=== PATIENT | female | born 1990 | race Caucasian/White ===

== ENCOUNTER 2016-09-04 07:46 | Inpatient (IN) | payer BC ==
[2016-08-30 11:49] LABS: ABSOLUTE EOSINOPHILS # (AUTO) 0.1 10^3/uL (0.0-0.6); ABSOLUTE LYMPHOCYTES (AUTO) 1.7 10^3/uL (0.5-4.7); ABSOLUTE MONOCYTES (AUTO) 0.8 10^3/uL (0.1-1.4); ABSOLUTE NEUT (AUTO) 4.9 10^3/uL (1.7-8.2); BASOPHILS % (AUTO) 0.6 % (0-2); HEMATOCRIT 32.9 % (36.0-47.0); HEMOGLOBIN 10.6 g/dL (12.0-15.5); HGB HCT DIFFERENCE -1.1; LYMPHOCYTES % (AUTO) 22.6 % (13-45); MEAN CORPUSCULAR HEMOGLOBIN 25.5 pg (27.0-33.4); MEAN CORPUSCULAR HGB CONC 32.3 g/dL (32.0-36.0); MEAN CORPUSCULAR VOLUME 79 fl (80-97); MONOCYTES % (AUTO) 10.8 % (3-13); RED BLOOD COUNT 4.16 10^6/uL (3.72-5.28); RED CELL DISTRIBUTION WIDTH 15.6 % (11.5-14.0); WHITE BLOOD COUNT 7.6 10^3/uL (4.0-10.5)
[2016-08-30 11:51] LABS: APPEARANCE,URINE SLIGHTLY-CLOUDY; BILIRUBIN,URINE NEGATIVE (NEGATIVE); GLUCOSE, URINE NEGATIVE (NEGATIVE); KETONES,URINE NEGATIVE (NEGATIVE); LEUKOCYTE ESTERASE,URINE MODERATE (NEGATIVE); NITRITE,URINE NEGATIVE (NEGATIVE); PROTEIN,URINE NEGATIVE (NEGATIVE); URINE SPECIFIC GRAVITY 1.004; UROBILINOGEN,URINE NEGATIVE mg/dL (<2.0)
[2016-08-30 12:04] LABS: URINE BARBITURATES SCREEN NEGATIVE; URINE METHADONE SCREEN NEGATIVE; URINE OPIATES LOW NEGATIVE; URINE PHENCYCLIDINE SCREEN NEGATIVE
[~2016-09-04 07:46] MED LIST: CEFAZOLIN 2 GM/D5W RTU 2 GM/50 ML RTUPB IV PRN; CEFAZOLIN SODIUM 1 GM in DEXTROSE 5%-WATER 50 ML IV PRN; LACTATED RINGERS 1000 ML IV PRN; LIDOCAINE 0.5% INJ-PF (5 MG/ML) 50 ML SDV SUBCUT PRN; RINGERS SOLUTION,LACTATED 1,500 ML IV PRN
[2016-09-04] MEDS ORDERED: OXYTOCIN 10 UNIT/ML VIAL ONE (10:29)
[2016-09-04] MEDS ORDERED: FENTANYL CITRATE INJ/PF 100 MCG/2 ML AMPUL ONE (10:30)
[2016-09-04] MEDS ORDERED: EPHEDRINE SULFATE INJ 50 MG/1 ML AMPULE ONE (10:30)
[2016-09-04] MEDS ORDERED: ACETAMINOPHEN 100 ML IV ONE ×2 (10:30→18:30)
[2016-09-04] MEDS ORDERED: METHYLERGONOVINE MALEATE INJ/PF 0.2 MG/1 ML AMPULE ONE (10:30)
[2016-09-04] MEDS ORDERED: OXYTOCIN/NORMAL SALINE 20 UNIT/1,000 ML RTUINJ ONE (10:30)
[2016-09-04] MEDS ORDERED: MIDAZOLAM 2 MG/2 ML INJ ONE (10:30)
[2016-09-04] MEDS ORDERED: DIPHENHYDRAMINE HCL 50 MG/ML VIAL IV PRN (11:04)
[2016-09-04] MEDS ORDERED: MORPHINE SULFATE 10 MG/ML INJ IV PRN (11:04)
[2016-09-04] MEDS ORDERED: FENTANYL CITRATE INJ/PF 100 MCG/2 ML AMPUL IV PRN ×3 (11:04)
[2016-09-04] MEDS ORDERED: ONDANSETRON HCL INJ/PF 4 MG/2 ML SDV IV PRN (11:04)
[2016-09-04] MEDS ORDERED: MEPERIDINE HCL/PF INJ 25 MG/1 ML DISP.SYRIN IV PRN (11:04)
[2016-09-04] MEDS ORDERED: PROMETHAZINE HCL INJ 25 MG/1 ML VIAL IV PRN ×2 (11:04)
[2016-09-04] MEDS ORDERED: OXYCODONE-ACETAMINOPHEN 5-325 MG TABLET PO PRN ×3 (11:04→14:55)
--- NOTE | 2016-09-04 11:48 | OPERATIVE REPORT E ---
Operative Report NAME: NICKY RANGEL : 1990 AGE: 26Y DATE OF SURGERY: 09/04/2016 ROOM: 225 PREOPERATIVE DIAGNOSES: 1. IUP at 39 weeks. 2. Previous , desires repeat. POSTOPERATIVE DIAGNOSES: 1. IUP at 39 weeks. 2. Previous , desires repeat. OPERATION: A low transverse hysterotomy section. SURGEON: DARIEL DHALIWAL M.D. FIXTURE REPAIRER FABRICATOR: Gris Henry, marketing operations assistant student. ESTIMATED BLOOD LOSS: 600 mL. FINDINGS: A male , cephalic presentation, with Apgars of 9 and 9. TISSUE REMOVED OR ALTERED: None. PROCEDURE: Patient was taken to the operating room, prepared and draped in the normal sterile fashion in the supine position with a leftward tilt. Transverse skin incision was made with a scalpel and carried through to the underlying layer of fascia with the same scalpel. The fascia was excised in the midline and extended laterally with Luis scissors. Fascia was then dissected from the rectus muscle sharply both superiorly and inferiorly without difficulty. The peritoneal cavity was then entered bluntly with good visualization of the bladder and the uterus. Bladder blade was inserted, and hysterotomy was nicked in the center with a scalpel and extended laterally with surgeon finger fracture. The infant was then delivered atraumatically. The nose and mouth were suctioned with a suction bulb. Cord was clamped and cut, and the was handed off to waiting registered dental hygienist. The cord blood was collected, and placenta was removed manually. Uterus was exteriorized and cleared of clots and debris. The hysterotomy was closed with 0 Monocryl in a running locked fashion. A second layer of the same suture was used in an imbricating stitch to ensure hemostasis. The uterus was then returned to the abdomen. The peritoneal cavity was cleared of clots and debris. The rectus muscle and peritoneum were reapproximated with 2-0 chromic using a mattress stitch. The fascia was closed with 0 Vicryl. The subcutaneous layer was closed with plain catgut, and the skin was closed with 4-0 Vicryl. Patient tolerated procedure well. Sponge, lap and needle counts were correct x2. Patient was taken to recovery in stable condition. DICTATING PHYSICIAN: DARIEL DHALIWAL M.D. [id number] Y#: [id number] ID: [id number] JOB#: [id number] ACCT: [id number] cc:DARIEL DHALIWAL M.D. >
--- NOTE | 2016-09-04 14:01 | L&D Flow Sheet ---
LD Flowsheet Datetime Report Generated by CPN: 09/04/2016 14:00 Datetime: 09/04/2016 13:36 Pulse: 79 (QS system process) SpO2 (%): 97 (QS system process) Datetime: 09/04/2016 13:31 Pulse: 80 (QS system process) SpO2 (%): 99 (QS system process) Datetime: 09/04/2016 13:26 NBP Sys/Lauryn/Mean (mmHg): 146 (QS system process) : 72 (QS system process) : 101 (QS system process) Pulse: 85 (QS system process) Pulse: 78 (QS system process) SpO2 (%): 98 (QS system process) Datetime: 09/04/2016 13:21 Pulse: 86 (QS system process) SpO2 (%): 100 (QS system process) Datetime: 09/04/2016 13:16 Pulse: 73 (QS system process) SpO2 (%): 99 (QS system process) Datetime: 09/04/2016 13:11 NBP Sys/Lauryn/Mean (mmHg): 138 (QS system process) : 65 (QS system process) : 93 (QS system process) Pulse: 85 (QS system process) Pulse: 94 (QS system process) SpO2 (%): 99 (QS system process) Datetime: 09/04/2016 13:06 Pulse: 88 (QS system process) SpO2 (%): 97 (QS system process) Datetime: 09/04/2016 13:01 Pulse: 87 (QS system process) SpO2 (%): 99 (QS system process) Datetime: 09/04/2016 12:56 Pulse: 75 (QS system process) SpO2 (%): 100 (QS system process) Datetime: 09/04/2016 12:51 Pulse: 78 (QS system process) SpO2 (%): 98 (QS system process) Datetime: 09/04/2016 12:46 Pulse: 82 (QS system process) SpO2 (%): 100 (QS system process) Datetime: 09/04/2016 12:41 Pulse: 74 (QS system process) SpO2 (%): 99 (QS system process) Datetime: 09/04/2016 12:36 Pulse: 76 (QS system process) SpO2 (%): 98 (QS system process) Datetime: 09/04/2016 12:31 Pulse: 78 (QS system process) SpO2 (%): 99 (QS system process) Datetime: 09/04/2016 12:30 Pain Pain Scale: 0 (Norberto Anabell, RN) Pain Presence: None/Denies (Norberto Anabell, RN) Pain Type: N/A (Norberto Anabell, RN) Datetime: 09/04/2016 12:26 Pulse: 76 (QS system process) SpO2 (%): 98 (QS system process) Datetime: 09/04/2016 12:21 Pulse: 78 (QS system process) SpO2 (%): 99 (QS system process) Datetime: 09/04/2016 12:16 Pulse: 79 (QS system process) SpO2 (%): 99 (QS system process) Datetime: 09/04/2016 12:11 Pulse: 81 (QS system process) SpO2 (%): 99 (QS system process) Datetime: 09/04/2016 12:06 Pulse: 97 (QS system process) SpO2 (%): 99 (QS system process) Datetime: 09/04/2016 12:01 Pulse: 87 (QS system process) SpO2 (%): 98 (QS system process) Datetime: 09/04/2016 12:00 Vital Signs Stage of : Recovery (Norberto Hung RN) Pain Pain Scale: 0 (Norberto Hung RN) Pain Presence: None/Denies (Norberto Hung RN) Pain Type: N/A (Norberto Hung RN)
[2016-09-04] MEDS ORDERED: KETOROLAC TROMETHAMINE 60 MG/2 ML SDV ONE (14:38)
[2016-09-04] MEDS ORDERED: ONDANSETRON HCL INJ/PF 4 MG/2 ML SDV ONE (14:38)
[2016-09-04] MEDS ORDERED: MEASLES,MUMPS&RUBELLA VACC/PF 0.5 ML VIAL SUBCUT PRN (14:55)
[2016-09-04] MEDS ORDERED: PROMETHAZINE HCL INJ 25 MG/1 ML VIAL IM PRN (14:55)
[2016-09-04] MEDS ORDERED: SIMETHICONE 80 MG TAB.CHEW PO PRN (14:55)
[2016-09-04] MEDS ORDERED: ACETAMINOPHEN 325 MG TABLET PO PRN (14:55)
[2016-09-04] MEDS ORDERED: OXYTOCIN/NORMAL SALINE 20 UNIT/1,000 ML RTUINJ INJ PRN (14:55)
[2016-09-04] MEDS ORDERED: DIPH/PERTUSS(ACELL)/TETANUS VAC/PF 0.5 ML SYR (>=10YO) IM PRN (14:55)
[2016-09-04] MEDS ORDERED: RINGERS SOLUTION,LACTATED 1,000 ML IV PRN (15:10)
[2016-09-04] MEDS: OXYCODONE-ACETAMINOPHEN 5-325 MG TABLET PO PRN ×2 (16:07→22:10)
[2016-09-04] MEDS: DOCUSATE SODIUM 100 MG CAPSULE PO SCH (18:42)
--- NOTE | 2016-09-04 19:01 | L&D Flow Sheet ---
LD Flowsheet Datetime Report Generated by CPN: 09/04/2016 19:00 Datetime: 09/04/2016 13:36 Pulse: 79 (QS system process) SpO2 (%): 97 (QS system process) Datetime: 09/04/2016 13:35 Pain Pain Scale: 0 (Samantha Dutta, RN) Pain Presence: None/Denies (Samantha Georgett, RN) Pain Type: N/A (Samantha Doristt, RN) Datetime: 09/04/2016 13:31 Pulse: 80 (QS system process) SpO2 (%): 99 (QS system process) Datetime: 09/04/2016 13:26 NBP Sys/Lauryn/Mean (mmHg): 146 (QS system process) : 72 (QS system process) : 101 (QS system process) Pulse: 85 (QS system process) Pulse: 78 (QS system process) SpO2 (%): 98 (QS system process) Datetime: 09/04/2016 13:21 Pulse: 86 (QS system process) SpO2 (%): 100 (QS system process) Datetime: 09/04/2016 13:16 Pulse: 73 (QS system process) SpO2 (%): 99 (QS system process) Datetime: 09/04/2016 13:11 NBP Sys/Lauryn/Mean (mmHg): 138 (QS system process) : 65 (QS system process) : 93 (QS system process) Pulse: 85 (QS system process) Pulse: 94 (QS system process) SpO2 (%): 99 (QS system process) Datetime: 09/04/2016 13:06 Pulse: 88 (QS system process) SpO2 (%): 97 (QS system process) Datetime: 09/04/2016 13:01 Pulse: 87 (QS system process) SpO2 (%): 99 (QS system process) Datetime: 09/04/2016 12:56 Pulse: 75 (QS system process) SpO2 (%): 100 (QS system process) Datetime: 09/04/2016 12:51 Pulse: 78 (QS system process) SpO2 (%): 98 (QS system process) Datetime: 09/04/2016 12:46 Pulse: 82 (QS system process) SpO2 (%): 100 (QS system process) Datetime: 09/04/2016 12:41 Pulse: 74 (QS system process) SpO2 (%): 99 (QS system process) Datetime: 09/04/2016 12:36 Pulse: 76 (QS system process) SpO2 (%): 98 (QS system process) Datetime: 09/04/2016 12:31 Pulse: 78 (QS system process) SpO2 (%): 99 (QS system process) Datetime: 09/04/2016 12:30 Pain Pain Scale: 0 (Norbreto Anabell, RN) Pain Presence: None/Denies (Norberto Anabell, RN) Pain Type: N/A (Norberto Anabell, RN) Datetime: 09/04/2016 12:26 Pulse: 76 (QS system process) SpO2 (%): 98 (QS system process) Datetime: 09/04/2016 12:21 Pulse: 78 (QS system process) SpO2 (%): 99 (QS system process) Datetime: 09/04/2016 12:16 Pulse: 79 (QS system process) SpO2 (%): 99 (QS system process) Datetime: 09/04/2016 12:11 Pulse: 81 (QS system process) SpO2 (%): 99 (QS system process) Datetime: 09/04/2016 12:06 Pulse: 97 (QS system process) SpO2 (%): 99 (QS system process) Datetime: 09/04/2016 12:01 Pulse: 87 (QS system process) SpO2 (%): 98 (QS system process) Datetime: 09/04/2016 12:00 Vital Signs Stage of : Recovery (Norbertotacho Hung, RN) Pain Pain Scale: 0 (Norberto Hung, RN) Pain Presence: None/Denies (Norberto Hung, RN) Pain Type: N/A (Norberto Hung RN)
[2016-09-04] MEDS: KETOROLAC TROMETHAMINE INJ/PF 30 MG/1 ML SDV IV SCH (21:12)
[2016-09-05] MEDS: OXYCODONE-ACETAMINOPHEN 5-325 MG TABLET PO PRN ×2 (02:13→12:41)
[2016-09-05] MEDS: KETOROLAC TROMETHAMINE INJ/PF 30 MG/1 ML SDV IV SCH (05:30)
--- NOTE | 2016-09-05 06:01 | L&D General Admission ---
General Admit Datetime Report Generated by CPN: 09/05/2016 06:00 INFORMATION Patient Age: 26 (07/17/2016 16:44:QS system process) CARE Height (in): 62 (09/05/2016 05:49:QS system process) ALLERGIES Medication Allergies: No Known Allergies (08/30/2016) (08/30/2016 10:13:QS system process) DEMOGRAPHICS Address: [address] [place] [id number] (07/17/2016 16:44:QS system process) Zipcode: [address] (07/17/2016 16:44:QS system process) Home (07/17/2016 16:44:QS system process) Work (07/17/2016 16:44:QS system process) SSN: [id number] (07/17/2016 16:44:QS system process) Next of Kin Name: MARINO RANGEL (07/17/2016 16:44:QS system process) Next of Kin (08/30/2016 09:58:QS system process) Next of Kin Relationship: SPO (09/04/2016 07:46:QS system process) Date of : 1990 (07/17/2016 16:44:QS system process) Marital Status: Single (07/17/2016 16:44:QS system process) Sex: Female (07/17/2016 16:44:QS system process) Race: (07/17/2016 16:44:QS system process) Ethnicity: Non- or (07/17/2016 16:44:QS system process) Buddhist: Pentecostalism (07/17/2016 16:44:QS system process) Feeding Preference: Breast (09/04/2016 15:18:Melanie Collazo RN) Benefit of Breast Feed Discussed: Yes (09/04/2016 15:18:Melanie Collazo RN) LABS Hemoglobin: 10.6 L (08/30/2016 11:05:QS system process) Hematocrit: 32.9 L (08/30/2016 11:05:QS system process) MCV: 79 L (08/30/2016 11:05:QS system process)
[2016-09-05 07:43] LABS: HEMOGLOBIN 8.1 g/dL (12.0-15.5); HGB HCT DIFFERENCE 0.3; MEAN CORPUSCULAR HEMOGLOBIN 26.3 pg (27.0-33.4); MEAN CORPUSCULAR HGB CONC 33.6 g/dL (32.0-36.0); MEAN CORPUSCULAR VOLUME 78 fl (80-97); RED BLOOD COUNT 3.07 10^6/uL (3.72-5.28); RED CELL DISTRIBUTION WIDTH 15.4 % (11.5-14.0); WHITE BLOOD COUNT 8.2 10^3/uL (4.0-10.5)
--- NOTE | 2016-09-05 09:07 | PDOC PROGRESS REPORT ---
Subjective-OB Subjective: Post Delivery Day: 26 year old. Denies any needs at this time. Pt doing well, no concerns. Regular diet, voiding without difficulty. She reports light bleeding and + flatus. Physical Exam (OB) Vital Signs: Temp Pulse Resp BP Pulse Ox 97.5 F 74 16 127/81 H 99 09/05/16 07:37 09/05/16 07:37 09/05/16 07:37 09/05/16 07:37 09/05/16 07:37 Intake & Output 09/04/16 09/05/16 09/06/16 06:59 06:59 06:59 Intake Total 1800 Output Total 1250 Balance 550 Weight 70.76 kg - Dressing Removed: No - opsite dressing D&I, no redness or drainage noted Incision: Dressing Closure Type: opsite - Lochia Lochia Amount: Scant < 10 ml Lochia Color: Rubra/Red - Abdomen Description: Tender, Soft Hernia Present: No Fundal Description: Firm, Midline Fundal Height: u/u - u/2 Objective-Diagnostic Laboratory: 09/05/16 06:36 09/05/16 06:36 WBC 8.2 RBC 3.07 L Hgb 8.1 L Hct 24.0 L MCV 78 L MCH 26.3 L MCHC 33.6 RDW 15.4 H Plt Count 221 Assessment and Plan(PN) - Assessment and Plan (1) delivery delivered Is this a current diagnosis for this admission?: Yes - Time Spent with Patient Time with patient: Less than 15 minutes Medications reviewed and adjusted accordingly: Yes - Disposition Anticipated Discharge: Home Within: within 24 hours
[2016-09-05] MEDS: DOCUSATE SODIUM 100 MG CAPSULE PO SCH ×2 (09:27→19:58)
[2016-09-05] MEDS: PRENATAL VITAMIN W-O CA NO5/FE FUMARATE/FA CAPSULE PO SCH (09:28)
[2016-09-05] MEDS: FERROUS SULFATE 325 MG TABLET PO SCH ×3 (10:41→19:58)
[2016-09-05] MEDS: ASCORBIC ACID 500 MG TABLET PO SCH ×2 (10:41→19:58)
[2016-09-05] MEDS: IBUPROFEN 800 MG TABLET PO SCH ×2 (11:29→19:58)
[2016-09-06] MEDS: IBUPROFEN 800 MG TABLET PO SCH ×3 (03:54→12:03)
[2016-09-06] MEDS: PRENATAL VITAMIN W-O CA NO5/FE FUMARATE/FA CAPSULE PO SCH (09:42)
[2016-09-06] MEDS: ASCORBIC ACID 500 MG TABLET PO SCH (09:42)
[2016-09-06] MEDS: FERROUS SULFATE 325 MG TABLET PO SCH (09:43)
[2016-09-06] MEDS: DOCUSATE SODIUM 100 MG CAPSULE PO SCH (09:43)
[2016-09-06 09:45] VITALS: BP 134/68
--- NOTE | 2016-09-06 11:44 | PDOC DISCHARGE SUMMARY ---
Final Diagnosis Discharge Date: 09/06/16 - Final Diagnosis (1) Term Is this a current diagnosis for this admission?: Yes (2) Status post repeat low transverse section Is this a current diagnosis for this admission?: Yes (3) delivery delivered Is this a current diagnosis for this admission?: Yes Discharge Data - Discharge Medication Home Medications: Pnv with Ca,No.72/Iron/FA [ Plus Tablet] 1 tab PO DAILY 06/21/14 Docusate Sodium [Colace 100 mg Capsule] 100 mg PO BID #60 capsule 09/06/16 Ferrous Sulfate [Feosol 325 mg Tablet] 325 mg PO TID #90 tablet 09/06/16 Ibuprofen [Motrin 800 mg Tablet] 800 mg PO Q8HP PRN #90 tablet 09/06/16 Oxycodone HCl/Acetaminophen [Percocet 5-325 mg Tablet] 1 tab PO Q4HP PRN #30 tablet 09/06/16 Reason(s) for Admission: Ceasarean Section-Repeat Procedures: Ultrasound - [place] Data Baby 1 Male at 1 minute: 8 at 5 minutes: 9 Weight: 4.026 kg Home with Mother: Yes Complications: No - Diagnosis Test Laboratory: Temp Pulse Resp BP Pulse Ox 97.6 F 96 16 134/68 H 98 09/06/16 08:55 09/06/16 08:55 09/06/16 08:55 09/06/16 08:55 09/06/16 08:55 08/30/16 08/30/16 09/05/16 10:30 11:05 06:36 RBC 4.16 3.07 L Hgb 10.6 L 8.1 L Hct 32.9 L 24.0 L Urine Opiates Screen NEGATIVE - Discharge information/Instructions Discharge Activity: Activity As Tolerated, Balance Activity w/Rest, No Driving, No Lifting Over 10 Pounds, No Lifting/Push/Pulling, Pelvic Rest, Slowly Increase Activity Discharge Diet: Regular Disposition: HOME, SELF-CARE Follow up with: [facility] in: 1, Weeks - incision check Physical Exam (OB) Vital Signs: Temp Pulse Resp BP Pulse Ox 97.6 F 96 16 134/68 H 98 09/06/16 08:55 09/06/16 08:55 09/06/16 08:55 09/06/16 08:55 09/06/16 08:55 Intake & Output 09/05/16 09/06/16 09/07/16 06:59 06:59 06:59 Intake Total 1800 400 Output Total 1250 Balance 550 400 Weight 70.76 kg - General General Appearance: Appears well In distress: None Note:: desires nexplanon for control - Dressing Removed: Yes - opsite Incision: Dressing Closure Type: opsite - Lochia Lochia Amount: Small 10-25 ml Lochia Color: Rubra/Red - Abdomen Description: Soft, Round Hernia Present: No Fundal Description: Firm, Midline Fundal Height: u/u - u/2 - Respiratory Respiratory Status: No respiratory distress - Extremities Upper extremity: Normal inspection Lower extremities: Normal inspection - Neurological Cognition: Normal Orientation: AAOx4 - Psychological Associated symptoms: Normal affect - bonding well with baby and without difficulty. Family supportive and at bedside., Normal mood - bonding well with baby
== END 2016-09-06 12:31 | disposition home or self-care (01) | DRG 766 ==
LOC: 2S 07:46
PROVIDERS: ADMIT Obstetrics & Gynecology; ATTEND Obstetrics & Gynecology
PROC: 4A1HXCZ Monitoring of Products of Conception, Cardiac Rate, External Approach (ICD-10-PCS; 2016-09-04)
PROC: 10D00Z1 Extraction of Products of Conception, Low, Open Approach (ICD-10-PCS; principal; 2016-09-04 10:45)
DX: O34.211 Maternal care for low transverse scar from previous cesarean delivery (principal); Z3A.39 39 weeks gestation of pregnancy; Z37.0 Single live birth
CPT/HCPCS: 1961; 36415; 80307; 81001; 85025; 85027; 86850; 86900; 86901; 94799; J0131; J0690; J1885; J2210; J2250; J2405; J2590; J3010; J3490; J7120

== ENCOUNTER 2016-09-09 20:05 | Emergency (ER) | payer BC ==
--- NOTE | 2016-09-09 20:24 | ER Document Report ---
ED Medical Screen (RME) - General Stated Complaint: FEVER POST Time seen by provider: 20:23 Mode of Arrival: Ambulatory Information source: Patient Notes: 26-year-old female had a on Sunday which was her second. She is complaining of fever and chills. No breast pain or redness. Burning abdominal pain. TRAVEL OUTSIDE OF THE [place] IN LAST 30 DAYS: No - Related Data Allergies/Adverse Reactions: No Known Allergies Allergy (Verified 08/30/16 10:12) Past Medical History GI Medical History: Reports: Hx Gastroesophageal Reflux Disease - with . Denies: Hx Hiatal Hernia, Hx Ulcer Past Surgical History: Reports: Hx Section
[2016-09-09] MEDS ORDERED: ACETAMINOPHEN 325 MG TABLET PO ONE (20:25)
[2016-09-09 20:47] LABS: APPEARANCE,URINE SLIGHTLY-CLOUDY; BILIRUBIN,URINE NEGATIVE (NEGATIVE); GLUCOSE, URINE NEGATIVE (NEGATIVE); KETONES,URINE NEGATIVE (NEGATIVE); LEUKOCYTE ESTERASE,URINE TRACE (NEGATIVE); NITRITE,URINE NEGATIVE (NEGATIVE); PROTEIN,URINE NEGATIVE (NEGATIVE); URINE SPECIFIC GRAVITY 1.006; UROBILINOGEN,URINE NEGATIVE mg/dL (<2.0)
[2016-09-09 20:51] LABS: ABSOLUTE EOSINOPHILS # (AUTO) 0.1 10^3/uL (0.0-0.6); ABSOLUTE LYMPHOCYTES (AUTO) 1.3 10^3/uL (0.5-4.7); ABSOLUTE MONOCYTES (AUTO) 0.9 10^3/uL (0.1-1.4); ABSOLUTE NEUT (AUTO) 7.9 10^3/uL (1.7-8.2); BASOPHILS % (AUTO) 0.4 % (0-2); EOSINOPHILS % (AUTO) 1.5 % (0-6); HEMATOCRIT 26.3 % (36.0-47.0); HEMOGLOBIN 8.7 g/dL (12.0-15.5); HGB HCT DIFFERENCE -0.2; LYMPHOCYTES % (AUTO) 12.4 % (13-45); MEAN CORPUSCULAR VOLUME 79 fl (80-97); MONOCYTES % (AUTO) 8.5 % (3-13); RED BLOOD COUNT 3.34 10^6/uL (3.72-5.28); RED CELL DISTRIBUTION WIDTH 16.5 % (11.5-14.0); SEGMENTED NEUTROPHILS % (AUTO) 77.2 % (42-78); WHITE BLOOD COUNT 10.2 10^3/uL (4.0-10.5)
[2016-09-09 21:06] LABS: ALANINE AMINOTRANSFERASE 31 U/L (9-52); ALBUMIN 3.5 g/dL (3.5-5.0); ALKALINE PHOSPHATASE 133 U/L (38-126); ANION GAP 9 (5-19); ASPARTATE AMINO TRANSFERASE 25 U/L (14-36); BILIRUBIN,TOTAL 0.8 mg/dL (0.2-1.3); BLOOD UREA NITROGEN 13 mg/dL (7-20); CALCIUM 9.1 mg/dL (8.4-10.2); CARBON DIOXIDE 23 mmol/L (22-30); CHLORIDE 105 mmol/L (98-107); CREATININE RESULT 0.57 mg/dL (0.52-1.25); GLUCOSE 94 mg/dL (75-110); POTASSIUM 4.5 mmol/L (3.6-5.0); SODIUM 137.3 mmol/L (137-145); TOTAL PROTEIN 6.5 g/dL (6.3-8.2)
--- NOTE | 2016-09-09 21:22 | ER Document Report ---
ED Fever - General Chief Complaint: Fever Stated Complaint: FEVER POST Time seen by provider: 21:20 Mode of Arrival: Ambulatory Information source: Patient TRAVEL OUTSIDE OF THE [place] IN LAST 30 DAYS: No - HPI Patient complains to provider of: fever, body aches Onset: This morning Onset/Duration: Gradual Quality of pain: Achy Severity: Mild Pain Level: 2 Associated symptoms: Body/muscle aches, Fever Similar symptoms previously: No Recently seen / treated by doctor: Yes Notes: Patient is a 26-year-old female presenting to the emergency room complaining of fever and body aches that started this morning, she denies any nausea, vomiting or diarrhea, no cough, cold or congestion, no headache, she is approximately 5 days status post section, she denies any drainage from her wound, she does have a small amount of burning on the right side, she denies any dysuria, no foul-smelling discharge, no breast pain or tenderness - Related Data Allergies/Adverse Reactions: No Known Allergies Allergy (Verified 08/30/16 10:12) Past Medical History - General Information source: Patient - Social History Smoking Status: Never Smoker Chew tobacco use (# tins/day): No Frequency of alcohol use: None Drug Abuse: None Family History: Reviewed & Not Pertinent Patient has suicidal ideation: No Patient has homicidal ideation: No Renal/ Medical History: Denies: Hx Peritoneal Dialysis GI Medical History: Reports: Hx Gastroesophageal Reflux Disease - with . Denies: Hx Hiatal Hernia, Hx Ulcer Past Surgical History: Reports: Hx Section Review of Systems - Review of Systems Constitutional: See HPI EENT: No symptoms reported Cardiovascular: No symptoms reported Respiratory: No symptoms reported Gastrointestinal: No symptoms reported Genitourinary: No symptoms reported Female Genitourinary: See HPI Musculoskeletal: No symptoms reported Skin: No symptoms reported Hematologic/Lymphatic: No symptoms reported Neurological/Psychological: No symptoms reported -: Yes All other systems reviewed and negative Physical Exam - Vital signs Vitals: Temp Pulse Resp BP Pulse Ox 99.3 F 119 H 17 146/75 H 98 09/09/16 20:24 09/09/16 20:24 09/09/16 20:24 09/09/16 20:24 09/09/16 20:24 Interpretation: Tachycardic - General General appearance: Appears well, Alert - HEENT Head: Normocephalic, Atraumatic Eyes: Normal Pupils: PERRL - Respiratory Respiratory status: No respiratory distress Chest status: Nontender, Other - Patient has no breast tenderness or swelling Breath sounds: Normal Chest palpation: Normal - Cardiovascular Rhythm: Regular Heart sounds: Normal auscultation Murmur: No - Abdominal Inspection: Normal, Other - Patient has a incision in the suprapubic region, there is no redness, no drainage, no tenderness, and honeycomb dressing is in place over top of the wound, abdomen is otherwise soft and nontender Distension: No distension Bowel sounds: Normal Tenderness: Nontender Organomegaly: No organomegaly - Back Back: Normal - Extremities General upper extremity: Normal inspection, Normal ROM General lower extremity: Normal inspection, Normal ROM. No: Nabeel's sign - Neurological Neuro grossly intact: Yes Cognition: Normal Orientation: AAOx4 Kendall Coma Scale Eye Opening: Spontaneous Kendall Coma Scale Verbal: Oriented Kendall Coma Scale Motor: Obeys Commands Kendall Coma Scale Total: 15 Speech: Normal Motor strength normal: LUE, RUE, LLE, RLE Sensory: Normal - Psychological Associated symptoms: Normal affect, Normal mood - Skin Skin Temperature: Warm Skin Moisture: Dry Skin Color: Normal Course - Re-evaluation Re-evalutation: 09/09/16 21:20 Patient was discussed with on-call SPINE NURSE, Dr. Myrick, reviewed patient's vital signs, lab findings, physical exam findings, no additional tests were recommended at the present time, he agrees with patient follow-up on Sunday as an outpatient the office, this plan was discussed with patient and spouse at bedside who acknowledge understanding and agreement as well - Vital Signs Vital signs: Temp Pulse Resp BP Pulse Ox 98.1 F 98 18 133/83 H 97 09/09/16 21:27 09/09/16 21:27 09/09/16 21:27 09/09/16 21:27 09/09/16 21:27 - Laboratory Result Diagrams: 09/09/16 20:25 09/09/16 20:25 Laboratory results interpreted by me: 09/09/16 09/09/16 09/09/16 20:25 20:25 20:30 RBC 3.34 L Hgb 8.7 L Hct 26.3 L MCV 79 L MCH 26.0 L RDW 16.5 H Lymphocytes % 12.4 L Alkaline Phosphatase 133 H Urine Blood LARGE H Ur Leukocyte Esterase TRACE H Discharge - Discharge Clinical Impression: Status post repeat low transverse section Fever Qualifiers: Fever type: unspecified Qualified Code(s): R50.9 - Fever, unspecified Condition: Stable Disposition: HOME, SELF-CARE Instructions: Acetaminophen, Fever ([facility]), Ibuprofen (General) ([facility]) Additional Instructions: Follow up with your SPINE NURSE on Sunday as scheduled. Take Tylenol or Motrin as needed for fever or body aches. Return to the emergency room immediately if symptoms worsen in any way or you have any additional concerns. Referrals: ANA LAURA WILSON MD [Primary Care Provider] - Follow up as needed
[2016-09-09 21:37] VITALS: BP 133/83
== END 2016-09-09 21:27 | disposition home or self-care (01) ==
LOC: ER 20:05
DX: O90.89 Other complications of the puerperium, not elsewhere classified (principal); M79.1 Myalgia; O86.4 Pyrexia of unknown origin following delivery
CPT/HCPCS: 36415; 80053; 81001; 85025; 87040; 87086; 99283

== ENCOUNTER 2020-01-07 07:45 | Inpatient (IN) | payer BC, OTHER ==
[2020-01-09 10:13] LABS: ABSOLUTE EOSINOPHILS # (AUTO) 0.1 10^3/uL (0.0-0.6); ABSOLUTE LYMPHOCYTES (AUTO) 0.9 10^3/uL (0.5-4.7); ABSOLUTE MONOCYTES (AUTO) 0.7 10^3/uL (0.1-1.4); ABSOLUTE NEUT (AUTO) 4.7 10^3/uL (1.7-8.2); BASOPHILS % (AUTO) 0.4 % (0-2); HEMATOCRIT 37.5 % (36.0-47.0); LYMPHOCYTES % (AUTO) 14.3 % (13-45); MEAN CORPUSCULAR HEMOGLOBIN 29.2 pg (27.0-33.4); MEAN CORPUSCULAR HGB CONC 34.6 g/dL (32.0-36.0); MEAN CORPUSCULAR VOLUME 84 fl (80-97); MONOCYTES % (AUTO) 10.4 % (3-13); PLATELET COUNT 233 10^3/uL (150-450); RED BLOOD COUNT 4.45 10^6/uL (3.72-5.28); RED CELL DISTRIBUTION WIDTH 14.5 % (11.5-14.0); SEGMENTED NEUTROPHILS % (AUTO) 73.9 % (42-78); TOTAL CELLS COUNTED % (AUTO) 100 %; WHITE BLOOD COUNT 6.4 10^3/uL (4.0-10.5)
[2020-01-09 10:24] LABS: APPEARANCE,URINE SLIGHTLY-CLOUDY; BILIRUBIN,URINE NEGATIVE (NEGATIVE); COLOR,URINE YELLOW; GLUCOSE, URINE NEGATIVE (NEGATIVE); KETONES,URINE NEGATIVE (NEGATIVE); LEUKOCYTE ESTERASE,URINE TRACE (NEGATIVE); NITRITE,URINE NEGATIVE (NEGATIVE); PROTEIN,URINE NEGATIVE (NEGATIVE); URINE SPECIFIC GRAVITY 1.023; UROBILINOGEN,URINE NEGATIVE mg/dL (<2.0)
[2020-01-09 10:44] LABS: URINE AMPHETAMINES SCREEN NEGATIVE; URINE BARBITURATES SCREEN NEGATIVE; URINE BENZODIAZEPINES SCREEN NEGATIVE; URINE COCAINE SCREEN NEGATIVE; URINE MARIJUANA (THC) SCREEN NEGATIVE; URINE METHADONE SCREEN NEGATIVE; URINE PHENCYCLIDINE SCREEN NEGATIVE
[2020-01-14] MEDS ORDERED: LIDOCAINE 0.5% INJ-PF (5 MG/ML) 50 ML SDV SUBCUT PRN (05:00)
[2020-01-14] MEDS ORDERED: CEFAZOLIN 2 GM/D5W RTU 2 GM/50 ML RTUPB IV PRN (05:00)
[2020-01-14] MEDS ORDERED: RINGERS SOLUTION,LACTATED 1,000 ML IV PRN ×2 (05:00→09:14)
[2020-01-14] MEDS: LACTATED RINGERS 1000 ML IV PRN ×2 (06:48→10:42)
[2020-01-14] MEDS ORDERED: OXYTOCIN 10 UNIT/ML VIAL ONE (07:31)
[2020-01-14] MEDS ORDERED: CEFAZOLIN 1 GM/D5W RTU 2 GM/100 ML RTUPB IV ONE (07:31)
[2020-01-14] MEDS ORDERED: PHENYLEPHRINE HCL INJ/PF 10 MG/1 ML SDV ONE (07:31)
[2020-01-14] MEDS ORDERED: CITRIC ACID/SODIUM CITRATE ORAL SOLN 15 ML UDCUP ONE (07:31)
[2020-01-14] MEDS ORDERED: OXYTOCIN/0.9 % SODIUM CHLORIDE 30 UNIT/500 ML RTUINJ ONE (07:32)
[2020-01-14] MEDS ORDERED: ONDANSETRON HCL INJ/PF 4 MG/2 ML SDV ONE (07:32)
[2020-01-14] MEDS ORDERED: MIDAZOLAM 2 MG/2 ML INJ ONE (07:32)
[2020-01-14] MEDS ORDERED: MEPERIDINE HCL/PF INJ 25 MG/1 ML DISP.SYRIN IV PRN (08:11)
[2020-01-14] MEDS ORDERED: DIPHENHYDRAMINE HCL 50 MG/ML VIAL IV PRN (08:11)
[2020-01-14] MEDS ORDERED: PROMETHAZINE HCL INJ 25 MG/1 ML VIAL IV PRN ×2 (08:11→09:14)
[2020-01-14] MEDS ORDERED: FENTANYL CITRATE INJ/PF 100 MCG/2 ML AMPUL IV PRN ×3 (08:11)
[2020-01-14] MEDS ORDERED: MORPHINE SULFATE 10 MG/ML INJ IV PRN (08:11)
[2020-01-14] MEDS ORDERED: PROPOFOL INJ 200 MG/20 ML VIAL IV ONE (09:10)
[2020-01-14] MEDS ORDERED: BUPIVACAINE HCL 0.25 % INJ/PF (2.5 MG/1 ML) 30 ML VIAL ONE (09:10)
[2020-01-14] MEDS ORDERED: ACETAMINOPHEN 325 MG TABLET PO PRN (09:14)
[2020-01-14] MEDS ORDERED: MEASLES,MUMPS&RUBELLA VACC/PF 0.5 ML VIAL SUBCUT PRN (09:14)
[2020-01-14] MEDS ORDERED: OXYCODONE-ACETAMINOPHEN 5-325 MG TABLET PO PRN (09:14)
[2020-01-14] MEDS ORDERED: DIPH/PERTUSS(ACELL)/TETANUS VAC/PF 0.5 ML SYR (>=10YO) IM PRN (09:14)
[2020-01-14] MEDS ORDERED: SIMETHICONE 80 MG TAB.CHEW PO PRN (09:14)
[2020-01-14] MEDS ORDERED: HYDROMORPHONE HCL INJ/PF 2 MG/ML AMPULE IV PRN (09:14)
[2020-01-14] MEDS ORDERED: OXYTOCIN/0.9 % SODIUM CHLORIDE 30 UNIT/500 ML RTUINJ IV PRN (09:14)
--- NOTE | 2020-01-14 09:28 | Operative Report ---
Operative Report DATE OF SURGERY: 01/14/20 PREOPERATIVE DIAGNOSIS: History of prior section x2. Intrauterine pre gnancy at 39.5 weeks EGA POSTOPERATIVE DIAGNOSIS: Same as above. Scar tissue between omentum and anterior abdominal wall OPERATION: Repeat section SURGEON: MARK SCHROEDER ANESTHESIA: Spinal TISSUE REMOVED OR ALTERED: Placenta COMPLICATIONS: None ESTIMATED BLOOD LOSS: 600cc INTRAOPERATIVE FINDINGS: Normal appearing uterus, bilateral fallopian tubes and ovaries. Adhesions between omentum and anterior abdominal wall. Also adhesions between bladder and anterior abdominal wall. PROCEDURE: IV fluids: per anesthesia record Urinary output: 200 cc Findings: Normal-appearing uterus bilateral fallopian tubes and ovaries. Placenta grossly normal. Viable female infant. Adhesions between bladder with anterior abdominal wall and omentum and anterior abdominal wall. Position: To recovery room in stable condition Description of procedure: The patient was taken to the operating room and general anesthesia was administered and found to be adequate. She was then placed on the OR table in the supine position with a slight leftward tilt. Patient was prepped and draped in usual sterile fashion. Ancef 2 gms was given IV prior to the procedure for infection prophylaxis. Timeout was taken. A Pfannenstiel skin incision was then made approximately 3 cm above the pubic symphysis and carried down to level the rectus fascia. The rectus fascia was then nicked in the midline with a scalpel and the fascial incision was extended laterally with use of curved Luis scissors. The rectus fascia was then grasped with 2 Kocker clamps elevated and the underlying rectus muscle was dissected off both bluntly and sharply. Scar tissue noted as above. Any bleeding controlled with cautery. The rectus muscles were then split in the midline and the peritoneum was entered. The peritoneal incision was then extended by sharp dissection and manually stretching the peritoneum. The bladder blade was positioned. Using pickups and metzenbaum scissors a bladder flap was created and bladder bluntly dissected out of harms way. A scalpel was then used in the lower uterine for the hysterotomy, slowly until amniotomy was obtained a large amount of clear fluid was noted. The uterin e incision was then manually stretched. The infant was noted to be in vertex postion. The head was elevated and brought to the hysterotomy incision. The head then delivered with minmal difficulty. The shoulders and the rest of the body followed immediately. The cord was cut clamped and the infant was handed off to the nurse awaiting. The placenta was manually delivered. Using a lap gauze the uterus was cleared of all clots and debris. An kemar retractor was placed to facilitate closure of uterus. The uterus was then exteriorized and a bladder blade was repositioned. The uterine incision was then closed with 0 Chromic suture in a running locked fashion. A second layer of the same suture was used in a running locked imbricated fashion. The uterine incision was inspected and noted to be hemostatic. Retractor was removed. The posterior aspect of the uterus was then inspected and anatomy was seen as above. The uterus was returned to its normal anatomic position within the abdominal c avity. Warm saline irrigation was used to clear all clots and debris from the abdomen. The uterine incision was inspected once more and noted to remain hemostatic. The bladder blade was removed and the peritoneum was closed with 2-0 chromic in a running fashion. The rectus muscles were then reapproximated and the rectus fascia was closed with a #1 PDS in a running fashion. The subcutaneous tissue was then inspected and any bleeding was controlled with Bovie electrocautery. The subcutaneous tissue was then closed with 2-0 Plain Gut suture in a running fashion. The skin was then closed with 4-0 Monocryl in a running subcuticular fashion. The skin incision was then clean dried and Dermabond was applied over the skin incision. All instrument sponge and needle counts were correct x3 for the procedure the patient tolerated the procedure well. She will proceed to recovery room in stable condition
--- NOTE | 2020-01-14 09:30 | PDOC DELIVERY SUMMARY ---
Delivery Summary - Maternal Hx : III Hx # Term Pregnancies: 3 LIZ: 01/16/20 Gestational Age: 39.5 - Delivery Labor: Not In Labor Support Person Present: Yes Location: OR : Scheduled Placenta: Within Normal Limits Placenta Description: Grossly normal Number of Vessels (Cord): 3 Nuchal Cord: No Estimated Blood Loss: 600 - Medications Type of Anesthesia:: Spinal - Delivery Personnel RN: ANTHONY RODRIGUEZ MD: MARK SCHROEDER
[2020-01-14] MEDS ORDERED: MEPERIDINE HCL/PF INJ 25 MG/1 ML DISP.SYRIN ONE (09:34)
[2020-01-14] MEDS ORDERED: PROMETHAZINE HCL INJ 25 MG/1 ML VIAL ONE (09:34)
[2020-01-14] MEDS ORDERED: HYDROMORPHONE HCL INJ/PF 2 MG/ML AMPULE ONE (09:35)
[2020-01-14] MEDS ORDERED: ACETAMINOPHEN 1,000 MG/100 ML RTUPB IV ONE (10:01)
[2020-01-14] MEDS: DOCUSATE SODIUM 100 MG CAPSULE PO SCH ×2 (11:30→19:07)
[2020-01-14] MEDS: PRENATAL VITAMIN W DHA CAPSULE PO SCH (11:30)
[2020-01-14] MEDS: KETOROLAC TROMETHAMINE INJ/PF 30 MG/1 ML SDV IV SCH ×2 (12:04→19:08)
[2020-01-14] MEDS ORDERED: IBUPROFEN 800 MG TABLET PO SCH (22:00)
[2020-01-14] MEDS: OXYCODONE-ACETAMINOPHEN 5-325 MG TABLET PO PRN (23:19)
[2020-01-15] MEDS: IBUPROFEN 800 MG TABLET PO SCH ×3 (01:29→17:31)
[2020-01-15 07:13] LABS: HEMATOCRIT 31.2 % (36.0-47.0); HEMOGLOBIN 10.8 g/dL (12.0-15.5); MEAN CORPUSCULAR HEMOGLOBIN 29.5 pg (27.0-33.4); MEAN CORPUSCULAR HGB CONC 34.6 g/dL (32.0-36.0); MEAN CORPUSCULAR VOLUME 85 fl (80-97); PLATELET COUNT 218 10^3/uL (150-450); RED BLOOD COUNT 3.65 10^6/uL (3.72-5.28); RED CELL DISTRIBUTION WIDTH 14.9 % (11.5-14.0); WHITE BLOOD COUNT 10.8 10^3/uL (4.0-10.5)
--- NOTE | 2020-01-15 09:22 | PDOC PROGRESS REPORT ---
Subjective-OB Progress Note for:: 01/15/20 Subjective: Doing ok, no c/o, pain under control, Physical Exam (OB) Vital Signs: Temp Pulse Resp BP Pulse Ox 97.9 F 70 16 129/75 H 100 01/15/20 07:21 01/15/20 07:21 01/15/20 07:21 01/15/20 07:21 01/15/20 07:21 Intake & Output 01/14/20 01/15/20 01/16/20 06:59 06:59 06:59 Intake Total 1588 Output Total 1575 Balance 13 - PIH/Pre-Eclampsia DTR's: 1 + Clonus: Negative Headache: Absent Epigastric Pain: No Visual Changes: No - Dressing Removed: No Incision: Open, Well Approximated Closure Type: Surgical Glue - Lochia Lochia Amount: Scant < 10 ml Lochia Color: Rubra/Red - Abdomen Description: Soft Hernia Present: No Fundal Description: Firm, Midline Fundal Height: u/u - u/2 Objective-Diagnostic Laboratory: 01/15/20 06:51 01/15/20 06:51 WBC 10.8 H RBC 3.65 L Hgb 10.8 L Hct 31.2 L MCV 85 MCH 29.5 MCHC 34.6 RDW 14.9 H Plt Count 218 Assessment and Plan(PN) - Assessment and Plan (1) Gestational diabetes Qualifiers: Gestational diabetes mellitus control: diet-controlled Trimester: second trimester Qualified Code(s): O24.410 - Gestational diabetes mellitus in , diet controlled Is this a current diagnosis for this admission?: Yes (2) delivery delivered Is this a current diagnosis for this admission?: Yes (3) Term Is this a current diagnosis for this admission?: Yes - Time Spent with Patient Time with patient: Less than 15 minutes Medications reviewed and adjusted accordingly: Yes - Disposition Anticipated Discharge: Home Within: within 24 hours
--- NOTE | 2020-01-15 09:29 | Delivery Summary ---
Del Sum A-C Datetime Report Generated by CPN: 01/15/2020 09:29 DELIVERY PERSONNEL DELIVERY PERSONNEL: [id number] Delivery Doctor:: Scarlett Atwood MD Anesthesiologist:: Severo Garcia MD MAINTENANCE DATA ANALYST:: Ronny Piper, MAINTENANCE DATA ANALYST Scientific Specialist:: Sridevi Whitley RN Neonatal Nurse Practitioner:: UNIQUE Mcrae Nursery Nurse:: Lynn Castaneda RN Coach/BOMB LOADER: DARYL CARSON SOCIAL DIRECTOR Coach/BOMB LOADER: Alta Duckworth, ST MATERNAL INFORMATION Delivery Anesthesia: Spinal Medications After Delivery: Pitocin 30 Units in 500ml NS/D5W Delivery QBL: 145 Maternal Complications: None LABOR SUMMARY EDC: 01/16/2020 00:00 No. Babies in Womb: 1 Attempted: No Labor Anesthesia: None LABOR INFORMATION Reason for Induction: Not Applicable Oxytocin: N/A Group B Beta Strep: negative Steroids Given: None Reason Steroids Not Administered: Not Applicable STAGES OF LABOR Stage 3 hr: 0 Stage 3 min: 1 VAGINAL DELIVERY Episiotomy: None Laceration #1: None Laceration Extension #1: N/A Laceration Repair: Not Applicable Sponge Count Correct: N/A Sharps Count Correct: N/A CSECTION DELIVERY Primary Indication: Repeat Elective CSection Urgency: Scheduled CSection Incidence: Repeat Labor: No Labor Elective: Elective CSection Incision: Lower Uterine Transverse BABY A INFORMATION Delivery Date/Time: 01/14/2020 08:22 Method of Delivery: Nurse Controlled Delivery: No Born in Route : No : N/A Forceps: N/A Vacuum Extraction: N/A Shoulder Dystocia : No PRESENTATION/POSITION BABY A Presentation: Cephalic Cephalic Presentation: Vertex Breech Presentation: N/A PLACENTA INFORMATION BABY A Placenta Delivery Time : 01/14/2020 08:23 Placenta Method of Delivery: Manual Removal Placenta Status: Delivered SCORES BABY A Heart Rate 1 min: >100 bpm Resp Effort 1 min: Slow, Irregular Reflex Irritability 1 min: Cough or Sneeze or Pulls Away Muscle Tone 1 min: Flaccid Color 1 min: Blue/Pale Resuscitation Effort 1 min: Tactile Stimulation; PPV/NCPAP SCORE 1 MIN: 5 Heart Rate 5 min: >100 bpm Resp Effort 5 min: Good Cry Reflex Irritability 5 min: Cough or Sneeze or Pulls Away Muscle Tone 5 min: Active Motion Color 5 min: Body [place], Extremities Blue Resuscitation Effort 5 min: N/A SCORE 5 MIN: 9 INFORMATION BABY A Gestational Age at Delivery: 39.5 Gestational Status: Full Term- 39- 40.6 Weeks Infant Outcome : Liveborn Infant Condition : Stable Infant Sex: Female WEIGHT/LENGTH BABY A Birthweight (gm): 3430 Infant Weight (lb): 7 Infant Weight (oz): 9 Length (in): 19.00 Length (cm): 48.26 CORD INFORMATION BABY A No. Cord Vessels: 3 Nuchal Cord : N/A Cord Blood Taken: Yes-For Eval (Mom's Blood Type - or O+) ASSESSMENT BABY A Physical Findings at Delivery: Within Normal Limits Respirations: Appears Normal Skin to Skin: Yes Orientor/ALS Called : Yes Infant Care By: S Esparza ASSISTANT SECRETARY/ S Be RN/ B Leonel RN Transferred To: Nursery BABY B INFORMATION : N/A
[2020-01-15] MEDS: DOCUSATE SODIUM 100 MG CAPSULE PO SCH ×2 (09:43→17:31)
[2020-01-15] MEDS: PRENATAL VITAMIN W DHA CAPSULE PO SCH (09:43)
[2020-01-15] MEDS: OXYCODONE-ACETAMINOPHEN 5-325 MG TABLET PO PRN (22:39)
[2020-01-16] MEDS: IBUPROFEN 800 MG TABLET PO SCH ×2 (01:54→09:44)
[2020-01-16] MEDS: PRENATAL VITAMIN W DHA CAPSULE PO SCH (09:44)
[2020-01-16] MEDS: DOCUSATE SODIUM 100 MG CAPSULE PO SCH (09:44)
--- NOTE | 2020-01-16 11:27 | PDOC DISCHARGE SUMMARY ---
Impression - Admit/DC Date/PCP Admission Date/Primary Care Provider: 01/14/20 05:02 ANA LAURA WILSON MD Discharge Date: 01/16/20 - Discharge Diagnosis (1) Gestational diabetes Is this a current diagnosis for this admission?: Yes (2) delivery delivered Is this a current diagnosis for this admission?: Yes - Additional Information Discharge Diet: Regular Discharge Activity: Balance Activity w/Rest, No Lifting Over 10 Pounds, Pelvic Rest, No tub bath Referrals: ANA LAURA WILSON MD [Primary Care Provider] - Prescriptions: Ibuprofen [Motrin 800 mg Tablet] 800 mg PO Q8HP PRN #90 tablet PRN Reason: Home Medications: Pnv with Ca,No.72/Iron/FA [ Plus Tablet] 1 tab PO DAILY 06/21/14 Ibuprofen [Motrin 800 mg Tablet] 800 mg PO Q8HP PRN #90 tablet 01/16/20 Results Laboratory Results: WBC 10.8 10^3/uL (4.0-10.5) H 01/15/20 06:51 RBC 3.65 10^6/uL (3.72-5.28) L 01/15/20 06:51 Hgb 10.8 g/dL (12.0-15.5) L 01/15/20 06:51 Hct 31.2 % (36.0-47.0) L 01/15/20 06:51 MCV 85 fl (80-97) 01/15/20 06:51 MCH 29.5 pg (27.0-33.4) 01/15/20 06:51 MCHC 34.6 g/dL (32.0-36.0) 01/15/20 06:51 RDW 14.9 % (11.5-14.0) H 01/15/20 06:51 Plt Count 218 10^3/uL (150-450) 01/15/20 06:51 Lymph % (Auto) 14.3 % (13-45) 01/09/20 09:53 [place] % (Auto) 10.4 % (3-13) 01/09/20 09:53 Eos % (Auto) 1.0 % (0-6) 01/09/20 09:53 Baso % (Auto) 0.4 % (0-2) 01/09/20 09:53 Absolute Neuts (auto) 4.7 10^3/uL (1.7-8.2) 01/09/20 09:53 Absolute Lymphs (auto) 0.9 10^3/uL (0.5-4.7) 01/09/20 09:53 Absolute Monos (auto) 0.7 10^3/uL (0.1-1.4) 01/09/20 09:53 Absolute Eos (auto) 0.1 10^3/uL (0.0-0.6) 01/09/20 09:53 Absolute Basos (auto) 0.0 10^3/uL (0.0-0.2) 01/09/20 09:53 Seg Neutrophils % 73.9 % (42-78) 01/09/20 09:53 POC Glucose 86 mg/dL (70-110) 01/14/20 05:42 Urine Color YELLOW 01/09/20 09:53 Urine Appearance SLIGHTLY-CLOUDY 01/09/20 09:53 Urine pH 6.0 (5.0-9.0) 01/09/20 09:53 Ur Specific [place] 1.023 01/09/20 09:53 Urine Protein NEGATIVE mg/dL (NEGATIVE) 01/09/20 09:53 Urine Glucose (UA) NEGATIVE mg/dL (NEGATIVE) 01/09/20 09:53 Urine Ketones NEGATIVE mg/dL (NEGATIVE) 01/09/20 09:53 Urine Blood NEGATIVE (NEGATIVE) 01/09/20 09:53 Urine Nitrite NEGATIVE (NEGATIVE) 01/09/20 09:53 Urine Bilirubin NEGATIVE (NEGATIVE) 01/09/20 09:53 Urine Urobilinogen NEGATIVE mg/dL (<2.0) 01/09/20 09:53 Ur Leukocyte Esterase TRACE (NEGATIVE) H 01/09/20 09:53 Urine WBC (Auto) 4 /HPF 01/09/20 09:53 Urine RBC (Auto) 2 /HPF 01/09/20 09:53 Urine Bacteria (Auto) TRACE /HPF 01/09/20 09:53 Squamous Epi Cells Auto 3 /HPF 01/09/20 09:53 Urine Mucus (Auto) MANY /LPF 01/09/20 09:53 Urine Ascorbic Acid NEGATIVE (NEGATIVE) 01/09/20 09:53 Urine Opiates Screen NEGATIVE 01/09/20 09:53 Urine Methadone Screen NEGATIVE 01/09/20 09:53 Ur Barbiturates Screen NEGATIVE 01/09/20 09:53 Ur Phencyclidine Scrn NEGATIVE 01/09/20 09:53 Ur Amphetamines Screen NEGATIVE 01/09/20 09:53 U Benzodiazepines Scrn NEGATIVE 01/09/20 09:53 Urine Cocaine Screen NEGATIVE 01/09/20 09:53 U Marijuana (THC) Screen NEGATIVE 01/09/20 09:53 COVID-19 Source NASOPHARYNGEAL 01/09/20 09:48 COVID-19 (JEY) NOT DETECTED 01/09/20 09:48 Blood Type O POSITIVE 01/12/20 08:51 Antibody Screen NEGATIVE 01/12/20 08:51 Plan Plan of Treatment: follow up in one week at [facility] for incision check
[2020-01-16 14:59] VITALS: BP 140/76
== END 2020-01-16 17:46 | disposition home or self-care (01) | DRG 788 ==
LOC: 2S 01-14 05:02
PROVIDERS: ADMIT Obstetrics & Gynecology; ATTEND Obstetrics & Gynecology
PROC: 10D00Z1 Extraction of Products of Conception, Low, Open Approach (ICD-10-PCS; principal; 2020-01-14)
DX: O34.211 Maternal care for low transverse scar from previous cesarean delivery (principal); O24.420 Gestational diabetes mellitus in childbirth, diet controlled; N85.8 Other specified noninflammatory disorders of uterus; Z3A.39 39 weeks gestation of pregnancy; Z37.0 Single live birth; Z03.818 Encounter for observation for suspected exposure to other biological agents ruled out
CPT/HCPCS: 1961; 36415; 59025; 64450; 76942; 80307; 81001; 82962; 85025; 85027; 86850; 86900; 86901; 87635; 94760; 94799; C9803; J0131; J0690; J1170; J1885; J2175; J2250; J2370; J2405; J2550; J2590; J2704; J3490; J7120